=== PATIENT | female | born 1980 | race Caucasian/White ===

== ENCOUNTER 2017-02-01 18:30 | Inpatient (IN) | payer OTHER ==
[2017-02-02] MEDS ORDERED: EPSOM SALT 454 GM TP PRN (06:38)
[2017-02-02] MEDS ORDERED: OLIVE OIL 118 ML BTL MISC PRN (06:38)
[2017-02-02] MEDS ORDERED: OXYTOCIN/RINGERS LACTATE 1,000 ML IV PRN (06:38)
[2017-02-02] MEDS ORDERED: TERBUTALINE SULFATE 1 MG/ML VIAL IV PRN (06:38)
[2017-02-02] MEDS ORDERED: LR 1,000 ML IV PRN (06:38)
[2017-02-02] MEDS ORDERED: LIDOCAINE 1% 300 MG/30 ML SDV ONE (07:33)
[2017-02-02] MEDS ORDERED: MISOPROSTOL 200 MCG TAB ONE (07:33)
[2017-02-02 07:36] LABS: % IMMATURE GRANULYOCYTES 1.1 % (0.0-1.1); ABSOLUTE IMMATURE GRANULOCYTES 0.14 10^3/uL (0.00-0.10); ADD DIFF? NO; ADD MORPH? NO; ADD SCAN? NO; ATYPICAL LYMPHOCYTE FLAG 10 (0-99); FRAGMENT RBC FLAG 0 (0-99); HEMATOCRIT 36.8 % (38.0-47.0); HEMOGLOBIN 12.7 g/dL (12.6-16.3); LEFT SHIFT FLG 10 (0-99); LIPEMIA HEMOLYSIS FLAG 90 (0-99); MEAN CELL HEMOGLOBIN 31.1 pg (27.9-34.1); MEAN CELL HEMOGLOBIN CONCENTR. 34.5 g/dL (32.4-36.7); MEAN CELL VOLUME 90.2 fL (81.5-99.8); MEAN PLATELET VOLUME 10.6 fL (8.7-11.7); PLATELET CLUMPS FLAG 0 (0-99); PLATELET COUNT 289 10^3/uL (150-400); RED BLOOD CELL COUNT 4.08 10^6/uL (4.18-5.33); RED CELL DISTRIBUTION WIDTH 13.6 % (11.5-15.2)
[2017-02-02] MEDS ORDERED: OXYTOCIN/RINGERS LACTATE 500 ML IV SCH (08:00)
--- NOTE | 2017-02-02 08:31 | PREANESOB ---
Obstetric Pre-Anesthesia Info - General Info Proposed Procedure: Labor and delivery with pitocin. : 2 Para: 1 WBD: 39 - Info Status: Full Term Monitors: External FHR Baseline (bpm): 130 FHR Pattern: Reassuring - Labor Status Cervical Dilation per last OB SVE: 4 Pitocin: In Use Indications for Labor Analgesia: Induction of Labor, Pain Control Labor Epidural: Proposed Anesthesia ROS: Prior labor epidural and cholecystectomy. Allergies/Adverse Reactions: Allergy/AdvReac Type Severity Reaction Status Date / Time penicillin Allergy Verified 04/02/15 02:59 Home Medications: Medication Instructions Recorded Colace 1 cap PO BID 02/02/17 Ferrous Gluconate 1 tab PO DAILY 02/02/17 1 tab PO DAILY 02/02/17 Visit Medications: Generic Name Dose Route Start Last Admin Trade Name Freq PRN Reason Stop Dose Admin Lactated Ringer's 1,000 mls @ 0 mls/hr 02/02/17 06:38 Lr IV 08/01/17 06:37 PRN PRN SEE PROTOCOL CONDITIONS Protocol Per Protocol Oxytocin/Lactated Ringer's 1,000 mls @ 150 mls/hr 02/02/17 06:38 Pitocin 20 Units/Lr (Premix) IV PRN PRN Post- bleeding Oxytocin/Lactated Ringer's 500 mls @ 0 mls/hr 02/02/17 08:00 Pitocin 30 Units/Lr (Premix) IV 08/01/17 07:59 CONT APPLE Per Protocol Ibuprofen 600 mg 02/02/17 06:38 Motrin PO 08/01/17 06:37 Q6HRS PRN post , inflammation Magnesium Sulfate 454 gm 02/02/17 06:38 Epsom Salt TP 08/01/17 06:37 PRN PRN perineal discomfort [place] Oil 118 ml 02/02/17 06:38 Sweet Oil MISC 08/01/17 06:37 ONCE PRN preneal massage Terbutaline Sulfate 0.25 mg 02/02/17 06:38 Bre[place]ine IV 08/01/17 06:37 ONCE PRN Tachysystole Discontinued Medications Generic Name Dose Route Start Last Admin Trade Name Freq PRN Reason Stop Dose Admin Lidocaine HCl Confirm 02/02/17 07:33 Lidocaine Hcl 1% Administered 02/02/17 07:34 Dose 300 mg .ROUTE .STK-MED ONE Misoprostol Confirm 02/02/17 07:33 Cytotec Administered 02/02/17 07:34 Dose 800 mcg .ROUTE .STK-MED ONE - Anesthesia History Response to Local Anesthetics: Normal Anesthesia & Operative History: No Prior Problems Family Anesthesia History: Negative - Social History Substance Use/Abuse: Denies - Focused Exam Blood Pressure: 107/52 Heart Rate: 77 Height/Weight (Nursing): Height 173.99 cm Weight 90.718 kg Physical Exam: Within normal limits. ASA Status: II Labs: 02/02/17 07:20 Patient ABO/Rh A POSITIVE 02/02/17 07:20 - Plan Anesthetic Plan: CSE Consent Signed and on Chart: Yes Patient/Guardian Understands and Agrees to Plan: Yes
--- NOTE | 2017-02-02 11:12 | GHP ---
[f rep st] HISTORY AND PHYSICAL DATE OF ADMISSION: 02/02/2017 ADMITTING DIAGNOSIS: Intrauterine at 39 and 4/7 weeks gestation with elective induction o f labor secondary to large for gestational age baby and polyhydramnios. HISTORY OF PRESENT ILLNESS: The patient is a 36-year-old, 2, para 1-0-0-1, with a last mens trual period of 04/29/2016 and an EDC of 02/05/2017, which was confirmed by an 8-week ultrasound. S he has had good care at [facility] since registration at 8 weeks gestation. Her course has been relatively uncomplicated. At 19 weeks, ultrasound revealed estimated weight of 96th percentile, and she also had a low-lying placenta. Followup ultrasound at 32 weeks, placenta was cleared, and then at 36 weeks, followup ultrasound revealed estimated weight of 98th percentile and a BPD greater than 98th percentile as well. She also had an ANABELL of 24.4 cm so p olyhydramnios. She discussed wanting to deliver prior to her EDC because of concerns of increased ri sks of secondary to the large size of the baby. She also had a history of a clavicle frac ture with G1 during the , and that baby was only 7 pounds 6 ounces. The patient was evaluated the week prior, and her cervix was found to be 2 cm, 50%, and she was admitted on Thursday morning for induction of labor. She was started on Pitocin. Currently she is feeling mild cramping. No hard strong contractions as of yet. Patient's risk factors include advanced maternal age. She has had normal testing this preg florencio. Normal verify, normal AFP, and normal anatomy ultrasounds. Rubella low immune and then the previously mentioned. PAST OBSTETRICAL HISTORY: In February of 2014, she had a viable female, 7 pounds 9 ounces, again had a fractured clavicle at . She had a compound presentation. That baby healed fine and is doing w ell. This is her second . PAST GYNECOLOGICAL HISTORY: She has a normal menstrual triad, normal last menstrual period of 04/29. No history of any abnormal Paps or STDs. She has used Depo-Provera and OCPs in the past. PAST MEDICAL HISTORY: No significant chronic medical problems. PAST SURGICAL HISTORY: She has a history of cholecystectomy in 2016, ALLERGIES: She is allergic to penicillin that caused a rash in childhood. MEDICATIONS: Only include vitamins. LABORATORIES: She is A positive, antibody negative, RPR nonreactive, rubella low immune. Hepatitis negative, HIV negative. Cystic fibrosis, SMA fragile X negative. Verify negative, AFP negative. Pap was normal. Gonorrhea and chlamydia negative. 1-hour GTT 118 and GBS is negative. SOCIAL HISTORY: She is . She lives with her and her daughter. 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 FAMILY HISTORY: Maternal grandfather and mother had myocardial infarction. Parents have chronic hy pertension. Mother has adult onset diabetes as did her paternal grandfather. Sister had gallbladde r disease. Mother has MS, had breast cancer at age 62. Paternal grandfather had a cardiovascular a ccident. OBJECTIVE: Today she is afebrile. Vital signs are stable. heart tones in the 140s, reactive , moderate variability. She is tammy every 2-3 minutes. Cervix is two, 50%, -2 cephalic. Ba by's head is ballotable. ASSESSMENT AND PLAN: 36-year-old, 2, para 1001, at 39 and 3/7 weeks gestation with a baby w ho is rapnw-sxy-ymlamdgfjet-age, and she has polyhydramnios, for induction of labor. I do not feel comfortable performing artificial rupture of membranes yet as the baby's head is ballotable, and she is not having strong contractions. Will encourage increasing the Pitocin to develop a good labor p attern, and patient to ambulate and sit upright to try to use gravity to help us descend the head fu rther into the maternal pelvis. I will reassess in 2-3 hours to see where the head position i s and the safety of artificial rupture of membranes. /[id number]/MODL
--- NOTE | 2017-02-02 13:58 | OBPROG ---
OBG Labor Progress Note Assessment/Plan: Assessment: 36 y/o @ 39 4/7 weeks IOL secondary to LGA and polyhydramnios Plan: AROM clear fluid now and good descent of head. Continue pitocin and status is reassuring. 02/02/17 13:56 Subjective: Pt is doing well feeling more regular contractions not painful. Objective: 02/02/17 07:20 Patient ABO/Rh A POSITIVE 02/02/17 07:20 Temp Pulse Resp BP Pulse Ox 77 107/52 L 02/02/17 08:31 02/02/17 08:31 - SVE Dilation (cm): 4 Effacement (%): 75 Station: -2 Twin A Current Contraction Pattern: Regular (Q 2-3) FHR (bpm): 140 FHR Pattern Variability: Moderate FHR Category: 1 Membranes: AROM Amniotic Fluid Color: Clear - Procedures Non-surgical Procedures: Amniotomy Oxytocin Orders Assessment - Pre-Induction/Augmentation Assessment Gestational Age: 39 week(s) and 4 day(s) ICD10 Worksheet Patient Problems: Problems Problem Status Onset Elective induction of labor planned Acute - ICD10 Problem Qualifiers (1) Elective induction of labor planned
[2017-02-02] MEDS ORDERED: PHENYLEPHRINE HCL 100 MCG/ML SYR ONE (18:39)
[2017-02-02] MEDS ORDERED: fentaNYL 2MCG/ML/BUP 0.1% RTU 100 ML BAG EP ONE (18:39)
[2017-02-02] MEDS ORDERED: BUPIVACAINE 0.25% 30 ML SDV ONE ×3 (18:39→23:38)
[2017-02-02] MEDS ORDERED: fentaNYL 100 MCG/2 ML INJ ONE ×3 (18:40→23:37)
[2017-02-02] MEDS ORDERED: ONDANSETRON 4 MG/2 ML VIAL IVP PRN (19:32)
--- NOTE | 2017-02-02 19:35 | POSTANESTH ---
Post Anesthetic Evaluation Cardiovascular Status: Normal, Stable Respiratory Status: Normal, Stable, Similar to Pre-op Cond. Level of Consciousness/Mental Status: Can Participate in Eval, Alert and Oriented Pain Control: Adequate, Prn Tx Ordered Nausea/Vomiting Control: Adequate, Prn Tx Ordered Complications Possibly Related to Anesthesia: None Noted (Tolerated CSE well, stable, comfortable.)
--- NOTE | 2017-02-02 19:45 | OBPROG ---
OBG Labor Progress Note Assessment/Plan: Assessment: 36 y/o @ 39 4/7 weeks IOL secondary to LGA and polyhydramnios Plan: IUPC placed now and we will dose pitocin until contractions are adequate. Pt has made some cervical change, status is reassuring. 02/02/17 13:56 02/02/17 19:37 Subjective: Pt is now comfortable with her epidural. She was feeling strong contractions prior to placement. Objective: 02/02/17 07:20 Patient ABO/Rh A POSITIVE 02/02/17 07:20 Temp Pulse Resp BP Pulse Ox 77 107/52 L 02/02/17 08:31 02/02/17 08:31 - SVE Dilation (cm): 6 Effacement (%): 80 Station: 0 Bond Current Contraction Pattern: Irregular FHR (bpm): 120 FHR Pattern Variability: Moderate FHR Category: 1 Membranes: AROM Amniotic Fluid Color: Clear - Procedures Non-surgical Procedures: Amniotomy, IUPC Oxytocin Orders Assessment - Pre-Induction/Augmentation Assessment Gestational Age: 39 week(s) and 4 day(s) ICD10 Worksheet Patient Problems: Problems Problem Status Onset Elective induction of labor planned Acute - ICD10 Problem Qualifiers (1) Elective induction of labor planned
[2017-02-02] MEDS ORDERED: LR 500 ML IV SCH (20:00)
[2017-02-02] MEDS ORDERED: fentaNYL 2MCG/ML/BUP 0.1% RTU 100 ML EP SCH (20:00)
--- NOTE | 2017-02-02 21:40 | OBPROG ---
OBG Labor Progress Note Assessment/Plan: Assessment: 36 y/o @ 39 4/7 weeks IOL secondary to LGA and polyhydramnios Plan: Pt is making good progress, now with an improved contraction pattern. status is reassuring, will continue to change positions to optimize rotation of the baby. status is reassuring. 02/02/17 13:56 02/02/17 19:37 02/02/17 21:38 Subjective: Pt is beginning to feel more painful contractions especially on her left side. She has tried bolus doses a few times. Objective: 02/02/17 07:20 Patient ABO/Rh A POSITIVE 02/02/17 07:20 Temp Pulse Resp BP Pulse Ox 77 107/52 L 02/02/17 08:31 02/02/17 08:31 - SVE Dilation (cm): 9 Effacement (%): 100 Station: 0 - Procedures Non-surgical Procedures: Amniotomy, IUPC Oxytocin Orders Assessment - Pre-Induction/Augmentation Assessment Gestational Age: 39 week(s) and 4 day(s) ICD10 Worksheet Patient Problems: Problems Problem Status Onset Elective induction of labor planned Acute - ICD10 Problem Qualifiers (1) Elective induction of labor planned
--- NOTE | 2017-02-02 22:36 | OBPROG ---
OBG Labor Progress Note Assessment/Plan: Assessment: 36 y/o @ 39 4/7 weeks IOL secondary to LGA and polyhydramnios Plan: Pt received an epidural bolus and we will see if it helps the pain. She will begin pushing soon. 02/02/17 13:56 02/02/17 19:37 02/02/17 21:38 02/02/17 22:36 Subjective: Pt is feeling strong painful contractions not controlled by the epidural. She has episodes of pelvic pressure, but it is not consistent. Objective: 02/02/17 07:20 Patient ABO/Rh A POSITIVE 02/02/17 07:20 Temp Pulse Resp BP Pulse Ox 77 107/52 L 02/02/17 08:31 02/02/17 08:31 - SVE Dilation (cm): 10 Effacement (%): 100 Station: +1 - Procedures Non-surgical Procedures: Amniotomy, IUPC Oxytocin Orders Assessment - Pre-Induction/Augmentation Assessment Gestational Age: 39 week(s) and 4 day(s) ICD10 Worksheet Patient Problems: Problems Problem Status Onset Elective induction of labor planned Acute - ICD10 Problem Qualifiers (1) Elective induction of labor planned
[2017-02-02] MEDS: PHENYLEPHRINE HCL 100 MCG/ML SYR IVP PRN ×3 (22:52→23:56)
[2017-02-03] MEDS: PHENYLEPHRINE HCL 100 MCG/ML SYR IVP PRN (00:06)
[2017-02-03] MEDS ORDERED: AMMONIA AROMATIC 1 EACH AMP IH ONE (00:39)
[2017-02-03] MEDS ORDERED: MISOPROSTOL 200 MCG TAB PR ONE (02:00)
[2017-02-03] MEDS ORDERED: SIMETHICONE 80 MG TAB CHEW PO PRN (02:01)
[2017-02-03] MEDS ORDERED: HYDROCODONE/APAP 5/325 TAB PO PRN (02:01)
[2017-02-03] MEDS ORDERED: ACETAMINOPHEN 325 MG TAB PO PRN (02:01)
[2017-02-03] MEDS ORDERED: HYDROCORTISONE 0.5% CREAM TP PRN (02:01)
--- NOTE | 2017-02-03 02:06 | OBDEL ---
Info Type: Vaginal GBS+: No Indications for Delivery: Elective, Suspected Macrosomia (polyhydramnios) Vaginal Delivery - Labor and Delivery Onset of Contractions Date: 02/02/17 Onset of Contractions Time: 14:00 Onset of Contractions Type: Induced Rupture of Membranes Date: 02/02/17 Rupture of Membranes Time: 13:49 Rupture of Membranes Type: Artificial Amniotic Fluid Color: Clear Dilation Complete Date: 02/02/17 Dilation Complete Time: 22:20 Placenta Delivery Date: 02/03/17 Placenta Delivery Time: 01:52 Total Hours of Labor: 11 Non-surgical Procedures: Amniotomy, IUPC Laceration: 1st Degree Repair: 3-0, Vicryl Vaginal Sponge Count Correct: Yes Vaginal Needle Count Correct: Yes Vaginal Sweep Performed: Yes EBL: 200 Delivery Events: None - Medications Labor Augmentation/Induction Methods Used: Pitocin Labor Augmentation/Induction Indication: LGA, Other (Specify) (polyhydramnios) Data Twin A Delivery Date: 02/03/17 Delivery Time: 01:42 SAMANTHA: 02/05/17 Gestational Age: 39 week(s) and 5 day(s) Sex of Infant: Male Score (1 Min): 8 Score (5 Min): 9 ICD10 Worksheet Patient Problems: Problems Problem Status Onset Elective induction of labor planned Acute Spontaneous vaginal delivery Acute - ICD10 Problem Qualifiers (1) Elective induction of labor planned (2) Spontaneous vaginal delivery
[2017-02-03] MEDS: IBUPROFEN 600 MG TAB PO PRN ×4 (02:15→22:34)
[2017-02-03] MEDS: DOCUSATE SODIUM 100 MG CAP PO PRN ×2 (08:20→22:34)
[2017-02-03] MEDS ORDERED: SUCROSE 1 EA UDL ONE (22:30)
[2017-02-04] MEDS ORDERED: SUCROSE 1 EA UDL ONE (01:13)
[2017-02-04] MEDS: IBUPROFEN 600 MG TAB PO PRN ×3 (05:30→23:24)
--- NOTE | 2017-02-04 07:47 | OBPP ---
Progress Note Assessment/Plan: Assessment: 1) s/p PPD # 1 - pt is stable 2) Anemia - pt is asymptomatic Plan: Continue routine pp care Plan for d/c home in am 02/0502/04/17 07:44 Subjective: Pt seen and examined. Doing well, no complaints. Some cramping edson when she breastfeeds. Relief with Motrin. Voiding without difficulty. No BM yet. BF without difficulty. Objective: 02/02/17 07:20 Patient ABO/Rh A POSITIVE 02/02/17 07:20 Temp Pulse Resp BP Pulse Ox 36.3 C 64 16 91/55 L 94 02/03/17 20:00 02/03/17 20:00 02/03/17 20:00 02/03/17 20:00 02/03/17 20:00 Uterine Position/Fundal Height: Umbilicus -2 Uterine Tone: Firm Physical Exam - Physical Exam General Appearance: WD/WN, alert, no apparent distress Respiratory: lungs clear, normal breath sounds Cardiac/Chest: regular rate, rhythm Abdomen: normal bowel sounds, non-tender, soft, flatus (+), other (Pelvic: tear intact) Extremities: non-tender, normal inspection Neuro/Psych: alert, normal mood/affect, oriented x 3
[2017-02-04 09:11] VITALS: O2SAT 96
[2017-02-04] MEDS: DOCUSATE SODIUM 100 MG CAP PO PRN (12:51)
[2017-02-04] MEDS ORDERED: MEASLES,MUMPS&RUBELLA VACC/PF 0.5 ML VIAL SC ONE (19:41)
[2017-02-05] MEDS: IBUPROFEN 600 MG TAB PO PRN (08:22)
[2017-02-05 08:35] VITALS: BP 107/71; PULSE 59; RESP 14; TEMP 97.6
--- NOTE | 2017-02-05 09:10 | OBPP ---
Progress Note Assessment/Plan: Assessment:pain well managed with supplementation ff@u scant rubra lochia perineum approximated minimal swelling Plan:discharge to home with instructions fu 4 weeks and 6 weeks. pain management , contraception, depression, , pericare, exercise, ss infection discussed 02/05/17 09:07 Subjective: Doing well denies pain. Minimal bleeding, pericare, with supplementation. Ready to go home Objective: 02/02/17 07:20 Patient ABO/Rh A POSITIVE 02/02/17 07:20 Temp Pulse Resp BP Pulse Ox 36.4 C 59 L 14 107/71 96 02/05/17 08:31 02/05/17 08:31 02/05/17 08:31 02/05/17 08:31 02/04/17 08:43 Uterine Position/Fundal Height: At Umbilicus Uterine Tone: Firm Physical Exam - Physical Exam General Appearance: WD/WN, alert, no apparent distress Abdomen: other (ff@u) Extremities: Meron's sign (negative bilaterally) DTR- Lower Extremities: Knee (R): 1+, Knee (L): 1+ (no clonus) Skin: normal color, warm/dry Neuro/Psych: no motor/sensory deficits, alert, normal mood/affect, oriented x 3
--- NOTE | 2017-02-05 12:30 | OBGCSDC ---
General Delivery Information - General Info : 2 Para: 2 Labs: Patient ABO/Rh A POSITIVE 02/02/17 07:20 Hct 36.8 % (38.0-47.0) L 02/02/17 07:20 Vaginal - Diagnosis Labor: Induced Rupture of Membranes Type: Artificial Amniotic Fluid Color: Clear Laceration: 1st Degree Repair: 3-0, Vicryl Delivery Events: None - Operations/Procedures Non-surgical Procedures: Amniotomy, IUPC L&D Analgesia/Anesthesia Type: Epidural, Nitrous - Hospital Course Antepartum: Delivered vaginally 2 degree laceration repaired. Intrapartum: did well. consultation routinely pain well managed : doing well denies difficulties. Doing well with . Denies pain well controlled with ibuprofen. Voiding without difficulty. pericare routinely when voiding. Scant rubra lochia. Discharge instructions given to return at 4 weeks or a mood check and 6 weeks for post check - Delivery Non-surgical Procedures: Amniotomy, IUPC L&D Analgesia/Anesthesia Type: Epidural, Nitrous Data Twin A Delivery Date: 02/03/17 Delivery Time: : SAMANTHA: 02/05/17 Gestational Age: 40 week(s) and 0 day(s) Sex of : Female Gleason Weight (gm): 0 g Score (1 Min): 9 Score (5 Min): 9 Bond Delivery Date: 02/03/17 Delivery Time: 01:42 SAMANTHA: 02/05/17 Gestational Age: 40 week(s) and 0 day(s) Sex of : Female Gleason Weight (gm): 4064 g Score (1 Min): 9 Score (5 Min): 9 Discharge Information - Discharge Information Condition: Good
== END 2017-02-05 12:00 | disposition home or self-care (01) | DRG 775 ==
LOC: FLD 02-02 06:28 → FOB 02-03 03:35
PROVIDERS: ADMIT Obstetrics & Gynecology; ATTEND Obstetrics & Gynecology
PROC: 0HQ9XZZ Repair Perineum Skin, External Approach (ICD-10-PCS; principal; 2017-02-04)
PROC: 10E0XZZ Delivery of Products of Conception, External Approach (ICD-10-PCS; principal; 2017-02-04)
PROC: 4A1J7BZ Monitoring of Products of Conception, Nervous Pressure, Via Natural or Artificial Opening (ICD-10-PCS; principal; 2017-02-04)
PROC: 3E033VJ Introduction of Other Hormone into Peripheral Vein, Percutaneous Approach (ICD-10-PCS; principal; 2017-02-04)
DX: O40.3XX0 Polyhydramnios, third trimester, not applicable or unspecified (principal); O36.63X0 Maternal care for excessive fetal growth, third trimester, not applicable or unspecified; O70.0 First degree perineal laceration during delivery; Z3A.40 40 weeks gestation of pregnancy; Z37.0 Single live birth
CPT/HCPCS: J2370; J2405; J2590; J3010

== ENCOUNTER → 2018-09-06 | Outpatient (CLI) | payer BC | LOC: FIMAGING 14:27 | PROVIDERS: ATTEND Family Medicine | DX: J18.1 Lobar pneumonia, unspecified organism (principal); J40 Bronchitis, not specified as acute or chronic ==

== ENCOUNTER → 2018-09-16 | Outpatient (CLI) | payer BC | LOC: FIMAGING 10:55 | PROVIDERS: ATTEND Family Medicine | DX: Z13.83 Encounter for screening for respiratory disorder NEC (principal) ==